=== PATIENT | male | born 1970 | race African-American/Black ===

== ENCOUNTER → 2020-06-23 | Outpatient (CLI) | payer BC | LOC: SJCVCIMAG 14:17 | PROVIDERS: ATTEND Nuclear Medicine Nuclear Cardiology | DX: I82.412 Acute embolism and thrombosis of left femoral vein (principal) ==

== ENCOUNTER → 2020-07-17 | Outpatient (CLI) | payer BC | LOC: SJCVCIMAG 15:18 | PROVIDERS: ATTEND Nuclear Medicine Nuclear Cardiology | DX: I82.412 Acute embolism and thrombosis of left femoral vein (principal) ==

== ENCOUNTER → 2020-09-22 | Outpatient (CLI) | payer BC | LOC: SJCVCIMAG 08:50 | PROVIDERS: ATTEND Nuclear Medicine Nuclear Cardiology | DX: M79.661 Pain in right lower leg (principal); M79.662 Pain in left lower leg; M79.89 Other specified soft tissue disorders ==

== ENCOUNTER → 2021-01-26 | Outpatient (CLI) | payer BC | LOC: SJCVCIMAG 09:45 | PROVIDERS: ATTEND Nuclear Medicine Nuclear Cardiology | DX: I82.4Y2 Acute embolism and thrombosis of unspecified deep veins of left proximal lower extremity (principal); R22.42 Localized swelling, mass and lump, left lower limb ==

== ENCOUNTER → 2021-05-13 | Outpatient (CLI) | payer BC | LOC: SJCVCIMAG 09:10 | PROVIDERS: ATTEND Nuclear Medicine Nuclear Cardiology | DX: I82.90 Acute embolism and thrombosis of unspecified vein (principal) ==